=== PATIENT | male | born 1975 | race Hispanic/Latino ===

== ENCOUNTER 2020-11-30 22:40 | Emergency (ER) | payer BC ==
[~2020-11-30] VITALS: Ht 172.7 cm; Wt 97.5 kg
[2020-11-30] MEDS ORDERED: LIDOCAINE HCL 2% LOCAL 20 ML VIAL ONE (23:39)
== END 2020-11-30 23:50 | disposition home or self-care (01) ==
LOC: ER 23:27
DX: S51.011A Laceration without foreign body of right elbow, initial encounter (principal); W26.8XXA Contact with other sharp object(s), not elsewhere classified, initial encounter
CPT/HCPCS: 12002; J2001

== ENCOUNTER 2021-08-14 13:46 | Emergency (ER) | payer BC ==
[~2021-08-14] VITALS: Ht 172.7 cm; Wt 97.5 kg
[2021-08-14] MEDS ORDERED: LIDOCAINE 1% 5ML-MPF INJ ONE (14:15)
[2021-08-14] MEDS ORDERED: TETANUS/DIPHTHERIA TOX ADULT 0.5 ML SYR IM ONE (14:15)
[2021-08-14] MEDS ORDERED: LIDOCAINE HCL 1% LOCAL INJ 20 ML VIAL ONE (14:31)
[2021-08-14] MEDS ORDERED: KEFLEX125 MG/5 M PO (14:31)
== END 2021-08-14 15:07 | disposition home or self-care (01) ==
LOC: ER 13:53
DX: S61.214A Laceration without foreign body of right ring finger without damage to nail, initial encounter (principal); W26.0XXA Contact with knife, initial encounter; Y92.008 Other place in unspecified non-institutional (private) residence as the place of occurrence of the external cause
CPT/HCPCS: 90471; 90714; 99283; J2001